=== PATIENT | male | born 1945 | race Caucasian/White ===

== ENCOUNTER → 2018-09-16 | Outpatient (CLI) | payer OTHER, MEDICARE ==
[~2018-09-16] MED LIST: ALLERGY10 M1 PO; ALPRAZOLAM 0.0.25 M1 PO; CENTRUM SILVER1 EAC2 PO; FINASTERIDE5 MG PO; FISH OIL 1,001000 M2 PO; FLOMAX0.4 MG PO; GLUCOPHAGE1000 MG PO; GLUCOSAMINE CH1 EA10 PO; GLUCOTROL10 MG PO; HYDROCODON-ACE1 EAC7 PO; IRON325 PO; JANUVIA50 MG PO; KEFLEX500 MG PO; LEVOTHYROXINE0.05 MG PO; MELATONIN1 MG PO; NABUMETONE 500500 M1 PO; OMEPRAZOLE40 MG PO; PANTOPRAZOLE SO40 MG PO; SIMVASTATIN80 MG PO; TAMSULOSIN HCL0.4 M1 PO; VITAMIN B COMP1 EACH PO; VITAMIN D31000 UNIT PO; ZANTAC 150MG T150 MG PO; ZESTRIL10 MG PO
== END ==
LOC: RAD 16:48
DX: M47.816 Spondylosis without myelopathy or radiculopathy, lumbar region (principal); M43.8X6 Other specified deforming dorsopathies, lumbar region; R10.2 Pelvic and perineal pain

== ENCOUNTER → 2018-09-20 | Outpatient (CLI) | payer OTHER, MEDICARE | LOC: MRI 10:14 | DX: S32.010A Wedge compression fracture of first lumbar vertebra, initial encounter for closed fracture (principal); S32.020A Wedge compression fracture of second lumbar vertebra, initial encounter for closed fracture; M47.816 Spondylosis without myelopathy or radiculopathy, lumbar region; M48.062 Spinal stenosis, lumbar region with neurogenic claudication; M51.26 Other intervertebral disc displacement, lumbar region; X58.XXXA Exposure to other specified factors, initial encounter; Y93.89 Activity, other specified; Y92.89 Other specified places as the place of occurrence of the external cause; Y99.8 Other external cause status ==

== ENCOUNTER → 2018-09-26 | Outpatient (CLI) | payer OTHER, MEDICARE ==
[~2018-09-26] VITALS: Ht 175.3 cm; Wt 109.8 kg
[2018-09-26 08:13] VITALS: BP 130/55
[2018-09-26 08:55] LABS: HEMATOCRIT 35.9 % (42.0-52.0); MCH 32.8 pg (26.0-34.0); MCHC 33.4 g/dL (28.0-37.0); MCV 98.1 fL (80.0-100.0); RBC 3.66 mil/uL (4.50-6.00); RDW 13.3 % (10.5-14.5); WBC 6.9 thou/uL (4.0-11.0)
[2018-09-26 09:00] LABS: CALCIUM 8.8 mg/dL (8.5-10.1); CREATININE 1.2 mg/dL (0.7-1.3)
[2018-09-26 09:04] LABS: APTT 25.9 Seconds (24.5-32.8); PROTIME 10.7 Seconds (9.3-11.4)
== END | disposition home or self-care (01) ==
LOC: SPEC 07:49
PROVIDERS: Radiology Diagnostic Radiology
DX: M80.08XA Age-related osteoporosis with current pathological fracture, vertebra(e), initial encounter for fracture (principal); M54.9 Dorsalgia, unspecified; E11.9 Type 2 diabetes mellitus without complications; E78.5 Hyperlipidemia, unspecified; E03.9 Hypothyroidism, unspecified; C83.30 Diffuse large B-cell lymphoma, unspecified site; G47.30 Sleep apnea, unspecified; Z90.49 Acquired absence of other specified parts of digestive tract; Z79.4 Long term (current) use of insulin; Z98.890 Other specified postprocedural states; Z79.899 Other long term (current) drug therapy

== ENCOUNTER → 2018-10-16 | Outpatient (CLI) | payer OTHER, MEDICARE ==
[~2018-10-16] VITALS: Ht 175.3 cm; Wt 108.9 kg
[~2018-10-16] MED LIST changes: +ALLOPURINOL 10100 M1 PO; +CARAFATE 1 GM TA1 G1 PO; +CRESTOR10 MG PO; +LANTUS SUBQ; -LEVOTHYROXINE0.05 MG PO; +NORCO 5-325 TA1 EAC1 PO; +NOVOLOG100 UNIT/1 SUBQ; +PIOGLITAZONE15 MG; +SYNTHROID125 MC1 PO; +XANAX 0.25 MG0.25 MG PO
[2018-10-16 09:27] VITALS: BP 125/78
--- NOTE | 2018-10-16 09:49 | NUR ---
Pain Clinic Assessment: 1. History of Osteoarthritis: B/L SHOULDERS B/L HIPS SPINE History of Rheumatoid Arthritis: NONE 2. Height: 5 ft. 9 in. 175.3 cm. Weight: 240.0 lb. oz. 108.864 kg. Patient's BMI: 35.4 3. Vital Signs: BP: 125/78 Pulse: 61 Resp: 16 Temp: 02 Sat: 97 ECG Mon: 4. Pain Intensity: 5 5. Fall Risk: Dizziness: N Needs help standing or walking: N Fallen in the last 3 months: Y Fall risk comments: 6. Patient on Blood Thinner: None 7. History of Hypertension: N 8. Opioid Therapy greater than 6 weeks: Opiate Contract Signed: 9. Risk Assessment Tool Provided: LOW 10. Functional Assessment Tool: 11. Recreational Drug Use: Never Drug Type: Tobacco Use: Never Smoker Tobacco Type: Amount or Packs/day: How Many Years: Alcohol Use: No Frequency: Quant:
--- NOTE | 2018-10-22 07:48 | HPC ---
[facility] [place] [address] PAIN MANAGEMENT CONSULTATION Name: AKASH JIANG [id number] Admission: 10/16/18 ������������������ Attend Phys: Geovany Frost DO Discharge: ������������������ Date of : 43 Report #: [id number] THIS REPORT FOR: //name// CC: Geovany Oviedo MD DATE OF SERVICE: 10/16/2018 REFERRING PHYSICIAN: Melvin Oviedo M.D. CHIEF COMPLAINT: Mid back pain. HISTORY OF PRESENT ILLNESS: As you know, the patient is a very pleasant 73-year-old male who sustained a fall from a ladder 09/11/2018. He sustained L1 compression fracture of the superior endplate and then L2 compression fracture of the superior endplate. The patient underwent a vertebral augmentation without improvement in his symptoms. Review of the imaging shows a kyphoplasty at L1 with successful stabilization of the superior endplate. Review of those films also showed an unsuccessful osteoplasty change at the L2 without stabilization of the superior endplate. The patient continues to experience pain for which he returned to his PCP and the primary care physician to determine his symptoms were related to these changes at the L4-L5 level and he was subsequently referred to our clinic. The patient indicates pain is only present when standing or sitting, completely resolved with lying down. He describes the pain as throbbing. He places pain directly over the L2 level. There is no involvement of any of the lower back or lower extremities in any type of radicular fashion. He indicates pain level of 5/10, reports daily average of 4/10, worst the pain has been is 10/10. The patient states he is standing, bending at the waist, sitting tends to exacerbate symptoms; lying down completely resolves symptoms as does sleeping in his recliner. He has been referred to our service to discuss options for treatment for suspected L4-L5 pathology. PAST MEDICAL HISTORY: 1. Diabetes mellitus type 2. 2. Chronic anemia. 3. Thyroid disease. 4. Peptic ulcer disease. 5. Degenerative joint disease. 6. Osteoarthritis. 7. Cancer. PAST SURGICAL HISTORY: 1. Herniorrhaphy. [facility] [address] [place] [address] PAIN MANAGEMENT CONSULTATION Name: AKASH JIANG Room #: REG [facility]#: [id number] Admission: 10/16/18 ������������������ Attend Phys: Geovany Frost DO Discharge: ������������������ Date of : 43 Report #: [id number] 2. Cholecystectomy. 3. Bilateral eye surgery. 4. Lumbar spine surgery. SOCIAL HISTORY: The patient denies tobacco, alcohol or IV or illicit drug use. 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 He retired about 9 years ago. He is not receiving workmen's compensation nor is he trying to obtain disability benefits. He is not in litigation in regards to pain and he is unaccompanied today. REVIEW OF SYSTEMS: Positive for fatigue and weakness, wearing corrective eyewear, hearing loss with tinnitus, shortness of breath with walking or lying flat, frequent diarrhea interspersed with constipation, peptic ulcer disease, frequent urination, nocturia, incontinence, dribbling to urine, change of force or stream urination, weakness, insomnia, thyroid disease, diabetes mellitus type 2, slow to heal after cuts and anemia. All other review of systems negative per 12-point review of systems other than those listed in the history of present illness. PAIN SCORE: Pain impact score 36/70 indicating moderate interference of daily activities secondary to pain. ALLERGIES: No known drug allergies. CURRENT MEDICATIONS: Insulin 40 units subcutaneously q.a.m. 35 units per each meal, hydrocodone 5/325 one tab every 4 hours p.r.n. for pain, sucralfate 1 gram per day, alprazolam 0.25 mg once a day, allopurinol 100 mg once a day, pioglitazone 15 mg once a day, lovastatin 10 mg per day, tamsulosin 0.4 mg once a day, nabumetone 500 mg twice a day, pantoprazole 40 mg per day, finasteride 5 mg per day, lisinopril 10 mg per day, levothyroxine 125 mcg per day and metformin 1000 mg twice a day. IMAGING DATA: MRI of the lumbar spine obtained 09/20/2018 shows a superior endplate compression fracture of L1 and superior endplate compression fracture of L2. There is no significant retropulsion at either level. Anatomic alignment is noted. T12-L1 is unremarkable. L1-L2 disk space shows some bulging effacement of the ventral thecal sac. No central canal stenosis. L3-L4 disk desiccation, mild changes of the central canal, reducing canal to 10 mm, bilateral moderate neural foraminal stenosis. L3-L4, mild effacement of the ventral thecal sac due to a disk desiccation and bulging, central canal is measuring 12.5 mm, bilateral neural foraminal stenosis is noted, mildly. L4-L5 disk desiccation, circumferential disk bulge, effacement of the ventral thecal sac, bilateral recess narrowing with possible effacement of the underside of the exiting L4 nerve roots. L5-S1 unremarkable. PQRS: The patient has known osteoarthritic changes of the bilateral shoulders, [address] [address] PAIN MANAGEMENT CONSULTATION Name: AKASH JIANG Room #: [facility]#: [id number] Admission: 10/16/18 ������������������ Attend Phys: Geovany Frost DO Discharge: ������������������ Date of : 43 Report #: [id number] bilateral hips and the lumbar spine. No rheumatoid arthritis. He is placing pain intensity of 5/10, is not a fall risk but did have this fall off the ladder during the accident on 09/11/2018; otherwise, no falls. He is not on blood thinners, not treated for hypertension. He is on opioids but not for greater than 6 weeks. He has a low opioid addiction potential. Pain impact score 36/70, moderate interference of daily activities secondary to pain. PHYSICAL EXAMINATION: VITAL SIGNS: Blood pressure 125/78, pulse of 61 and respiratory rate 16 and unlabored. The patient is 97% on room air. Height 5 feet 9 inches tall, weight 240 pounds and BMI calculated 35.4. GENERAL: Well-developed, well-nourished and exogenously obese 73-year-old male. He appears stated age, pain is rated today around 5/10. HEENT: Normocephalic and atraumatic. Pupils equal, round, reactive to light. Extraocular muscles are intact. Sclerae nonicteric without injection. NEUROLOGICAL: Cranial nerves 2 through 12 grossly intact. Speech fluent. The patient deemed a good historian. LUNGS: Clear. No wheeze, rhonchi or rales. CARDIOVASCULAR: Regular. No appreciable gallop and no rub. ABDOMEN: Soft and obese. Normoactive bowel sounds. EXTREMITIES: Show no clubbing, no cyanosis and no edema. MUSCULOSKELETAL: There is palpatory tenderness directly over the L2 level. There is no ecchymosis or changes in skin color, texture overlying the area. Seated straight leg raising negative. Supine straight leg raising negative. Lew's test is negative. Modified Gaenslen's positive for axial low back pain. Ankle clonus negative. Babinski is negative. He is intact to light touch from L1 through S2 dermatomes. Deep tendon reflexes are symmetrical at patella and Achilles, diminished but symmetrical. Gait appears normal. Pain is elicited with forward flexion of the lumbar spine, extension of lumbar spine and improves pain nearly a 0/10 level. ASSESSMENT: 1. Traumatic L1 compression fracture status post successful osteoplastic procedure. 2. L2 compression fracture with unsuccessful osteoplasty procedure. 3. Axial back pain due to L2 compression fracture with unsuccessful osteoplasty procedure. 4. Degenerative changes of the lumbar spine. PLAN: 1. Based on today's physical exam and history the patient has provided, the description the patient uses in regards to pain as well as location of symptoms and the factors that exacerbate his pain and improve his symptoms, as well as the review of imaging that shows a successful L1 compression fracture repair with osteoplastic procedure and stabilization of the superior endplate along with an unsuccessful L2 vertebral augmentation without and stabilization of the [address] [address] PAIN MANAGEMENT CONSULTATION Name: AKASH JIANG Room #: REG [facility]#: [id number] Admission: 10/16/18 ������������������ Attend Phys: Geovany Frost DO Discharge: ������������������ Date of : 43 Report #: [id number] superior endplate likely source of the patient's pain remains the fracture at L2. The patient himself reports that his pain has not improved since the osteoplastic procedure and remains in the exact same distribution and at the top of the same intensity would indicate that the findings of the imaging are consistent with his physical presentation. He has no component of neuropathy. There is no clinical discogenic pain on examination. No findings in the lumbar spine causing any significant impingement of the central canal or neural foramen and the patient is having no paresthesias radiating and into the buttock area or down the legs. He has axial back pain, specifically over the L2 level. This would indicate a lack of efficacy with this L2 vertebral augmentation. The patient and I discussed at length the treatment options available for the residual pain he is experiencing. It is not unusual for the patients to have pain lasting up to 6-8 weeks post-fracture even with augmentation being successful. We discussed the following treatment today. 2. Given the findings on the x-ray imaging postprocedurally from the osteoplastic procedure, we would recommend the patient use a TLSO brace. He has near complete resolution of pain with extension of the lumbar spine into a more anatomic position. This would indicate that he is continuing to have a fracture related pain at the L2 level as placing a stress upon the superior endplate with forward flexion of the lumbar spine or even sitting a "slumped position" would be exacerbating symptoms. This would indicate that the compressive forces at that level continue to be problematic. With the TLSO bracing in the form of a Jewitt brace, we can offload the weight from the anterior surface of the vertebral body placing the weight on the posterior elements, which are still stable and resolve his symptoms. He will need to wear this TLSO brace while seated standing or doing any activities for at least 6-8 weeks for a full and complete recovery. He can remove the TLSO brace during lying down. 3. The patient and I did discuss the possibility of medication management to address ongoing pain. He is going to continue to see his PCP for any pain medications. We recommend continuing the anti-inflammatory medication if he can continue to tolerate this medication, though has been shown in some of the orthopedic literature that it may slow the healing of bony structures and this has not been proven in a long-term study data and I believe he would be safe to continue this therapy. We recommend this along with his low dose opioids as necessary, we will recommend half dose of his hydrocodone on an as needed basis as I do not feel he needs the full dosing nor does the patient. We will defer to the primary team to continue this therapy. 4. In regards to injection therapies, they are not indicated in this case. Steroids have been known to cause decreased osteoblastic activity and increasing of osteoclastic activity, which will reduce the potential for healing in the area and is not recommended in this patient's case. There is no radicular component to the symptoms the patient is experiencing and no significant central canal neural foraminal stenosis to be concerned of. 5. We wish to thank Dr. Oviedo for the referral of the patient to our clinic. It is unfortunate that his osteoplastic procedure was not completely successful. I believe he did receive excellent improvement in his L1 [address] [address] PAIN MANAGEMENT CONSULTATION Name: AKASH JIANG Room #: REG [facility]#: [id number] Admission: 10/16/18 ������������������ Attend Phys: Geovany Frost DO Discharge: ������������������ Date of : 44 Report #: [id number] compression fracture pain but unsuccessful at the L2 level given the lack of superior endplate distribution of osteoplastic material leaving him with continued axial back pain secondary to the unsuccessful treatment of the L2 level. Again, we wish to thank Dr. Oviedo for the referral of the patient to our clinic. We will be returning his care to your capable services advising you to have the patient removed the TLSO brace in approximately 6-8 weeks after you have done serial x-rays to confirm fracture healing. Again, we wish to thank the opportunity to see the patient in consultation. ��������������������������������������������� <ELECTRONICALLY SIGNED> ���������������������������������������� By: Geovany Frost DO ��������������������������������������������� 10/22/18 0748 [id number] Geovany Frost DO /nt
== END ==
LOC: PAIN 06:55
DX: S32.010D Wedge compression fracture of first lumbar vertebra, subsequent encounter for fracture with routine healing (principal); S32.020D Wedge compression fracture of second lumbar vertebra, subsequent encounter for fracture with routine healing; M47.816 Spondylosis without myelopathy or radiculopathy, lumbar region; W11.XXXD Fall on and from ladder, subsequent encounter

== ENCOUNTER → 2018-10-30 | Outpatient (CLI) | payer OTHER, MEDICARE ==
[~2018-10-30] VITALS: Ht 175.3 cm; Wt 109.3 kg
[2018-10-30 09:18] VITALS: BP 119/54
--- NOTE | 2018-10-30 09:23 | NUR ---
Pain Clinic Assessment: 1. History of Osteoarthritis: B/L SHOULDERS B/L HIPS SPINE History of Rheumatoid Arthritis: NONE 2. Height: 5 ft. 9 in. 175.3 cm. Weight: 241.0 lb. oz. 109.317 kg. Patient's BMI: 35.6 3. Vital Signs: BP: 119/54 Pulse: 72 Resp: 14 Temp: 02 Sat: 97 ECG Mon: 4. Pain Intensity: 2-8 5. Fall Risk: Dizziness: N Needs help standing or walking: N Fallen in the last 3 months: N Fall risk comments: 6. Patient on Blood Thinner: None 7. History of Hypertension: N 8. Opioid Therapy greater than 6 weeks: Opiate Contract Signed: 9. Risk Assessment Tool Provided: LOW 10. Functional Assessment Tool: 11. Recreational Drug Use: Never Drug Type: Tobacco Use: Never Smoker Tobacco Type: Amount or Packs/day: How Many Years: Alcohol Use: No Frequency: Quant:
--- NOTE | 2018-11-12 09:15 | HPC ---
[facility] [place] [address] PAIN MANAGEMENT CONSULTATION Name: AKASH JIANG Room #: REG [facility].#: [id number] Admission: 10/30/18 ������������������ Attend Phys: Geovany Frost DO Discharge: ������������������ Date of : 43 Report #: [id number] THIS REPORT FOR: //name// CC: Geovany Oviedo MD DATE OF SERVICE: 10/30/2018 CHIEF COMPLAINT: Mid back pain status post suboptimal fracture repair. HISTORY OF PRESENT ILLNESS: As you know, the patient is a very pleasant 73-year-old male who returns today in followup visit with continued mid back pain. We saw the patient in consultation per the request of Dr. Oviedo after he underwent failed kyphoplasty procedure to address two fractures after a fall from the ladder. He returns today in followup visit with the TLSO brace in place and appears to be doing fairly well. He is placing pain anywhere from 2-8/10 depending on activity. He admits that he has not been consistent with the use of the bracing system and notes pain with certain movements. He returns today to discuss options for treatment. Unfortunately, the repair at the L2 level did not address the actual fracture position and this left the patient with continued pain and discomfort. The TLSO bracing was applied to help stabilize the bony structure so that no further compression will occur. I discussed with the patient in our first visit that pain will be present for up to 6-8 weeks as he continues to heal. Unfortunately, there is no way to go back and redo what has been done. He returns today to discuss adjustments in medication therapy in hopes of improving pain further, as he has not seen prolonged benefit with just the TLSO bracing and [id number] medications. ALLERGIES: No known drug allergies. CURRENT MEDICATIONS: Insulin, hydrocodone, sucralfate, alprazolam, allopurinol, pioglitazone, lovastatin, Metamucil, nabumetone, pantoprazole, lisinopril, levothyroxine and metformin. SOCIAL HISTORY: The patient denies tobacco, alcohol, IV or illicit drug use. 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 He retired about nine years ago. He is unaccompanied today. IMAGING: No new imaging available. PQRS: The patient has known arthritic changes of bilateral shoulders, bilateral hips and the lumbar spine. No rheumatoid arthritis. He is placing pain intensity today around 2-8/10 depending on activity. He is not typically a fall risk, but did have a fall off the ladder. He is not on blood thinners. He is treated for hypertension. He is not on chronic opioids. He has a low opiate [facility] [address] [place] [address] PAIN MANAGEMENT CONSULTATION Name: JIANGAKASH Room #: REG [facility]#: [id number] Admission: 10/30/18 ������������������ Attend Phys: Geovany Frost DO Discharge: ������������������ Date of : 43 Report #: [id number] addiction potential. Pain impact score is 36/70, moderate interference of daily activities secondary to pain. PHYSICAL EXAMINATION: VITAL SIGNS: Blood pressure 119/54, pulse 72, respiratory rate 14 and unlabored. The patient is 97% on room air. Height 5 feet 9 inches tall, weight 241 pounds, BMI calculated 35.6. GENERAL: Well-developed, well-nourished, well-hydrated, exogenously obese 73-year-old male appearing stated age, pain is rated anywhere from 2-8/10. HEENT: Normocephalic, atraumatic. Pupils equal, round, reactive to light. EXTREMITIES: Show no clubbing, no cyanosis, and no edema. MUSCULOSKELETAL: Lower extremity strength equal and symmetrical 5/5. Slight deconditioning noted bilaterally. Seated straight leg raising negative. Supine straight leg raising negative. Lew test negative. Modified Gaenslen's is positive for axial low back pain. Babinski is negative. Gait appears normal. Stance is improved with the TLSO brace. ASSESSMENT: 1. Traumatic L1 compression fracture status post vertebral augmentation. 2. L2 compression fracture with unsuccessful vertebral augmentation. 3. Axial back pain due to L2 compression fracture with unsuccessful osteoplasty procedure. 4. Degeneration of lumbar spine. PLAN: 1. The patient returns today in followup visit. Wearing of the TLSO brace appears to be slightly loose on the patient. We have adjusted the device to better improve analgesia and stabilization of the lumbar spine. Unfortunately, I cannot speed up the fracture healing process, it will take time. I have advised the patient that he will need to reduce his activities to some degree to accommodate the fact that the fracture remains relatively active and that adjustments in the device may improve the pain he has been experiencing by offloading the anterior weight of the vertebral body to the posterior elements, which remained stable. He will need to remain in the brace until which time, his own healing takes over. Unfortunately, the augmentation procedure performed did not address the actual fracture position and left the patient with suboptimal results. The patient will need to remain in the TLSO brace for at least 6-8 weeks. 2. We will send the patient for x-ray of the thoracolumbar spine. I do wish to further evaluate this fracture area to determine if further compression has occurred. The patient can contact our clinic tomorrow in regards to the findings. If we note any significant changes, we will contact the patient directly. He does not have any radicular component to his symptoms at this time, so I am not concerned of retropulsion at this point, though we will be watchful for this issue. 3. The patient was provided a prescription of hydrocodone 5/325 one tab p.o. [address] [address] PAIN MANAGEMENT CONSULTATION Name: AKASH [facility]IANG [facility] [id number] Admission: 10/30/18 ������������������ Attend Phys: Geovany Frost DO Discharge: ������������������ Date of : 43 Report #: [id number] q.8h. p.r.n. for pain. I have given the patient #90 tablets, releasing today. The patient was advised to take the medication only as directed. He is not to take the medication prophylactically. He is to watch for side effects of sleepiness, disorientation, confusion, mental slowing and constipation. If he notes any side effects, contact either ourselves or his PCP. 4. We will see the patient back in followup visit in approximately one month. At that time, we will redo x-ray imaging to confirm if healing has begun and if so, begin to remove the patient from the TLSO brace based on activities. ��������������������������������������������� <ELECTRONICALLY SIGNED> ���������������������������������������� By: Geovany Frost DO ��������������������������������������������� 11/12/18 0915 [id number] Geovany Frost DO /marcial
== END ==
LOC: PAIN 06:49
DX: S32.019A Unspecified fracture of first lumbar vertebra, initial encounter for closed fracture (principal); S32.029A Unspecified fracture of second lumbar vertebra, initial encounter for closed fracture; M51.36 Other intervertebral disc degeneration, lumbar region; Z79.4 Long term (current) use of insulin; Z79.899 Other long term (current) drug therapy; X58.XXXA Exposure to other specified factors, initial encounter; Y93.89 Activity, other specified; Y92.89 Other specified places as the place of occurrence of the external cause; Y99.8 Other external cause status

== ENCOUNTER → 2018-11-12 | Outpatient (CLI) | payer OTHER | LOC: RAD 12:32 | DX: M47.815 Spondylosis without myelopathy or radiculopathy, thoracolumbar region (principal); M43.8X6 Other specified deforming dorsopathies, lumbar region ==

== ENCOUNTER → 2018-11-13 | Outpatient (CLI) | payer OTHER ==
[~2018-11-13] VITALS: Ht 175.3 cm; Wt 108.8 kg
[2018-11-13 09:00] VITALS: BP 112/57
--- NOTE | 2018-11-13 09:08 | NUR ---
Pain Clinic Assessment: 1. History of Osteoarthritis: B/L SHOULDERS B/L HIPS SPINE History of Rheumatoid Arthritis: NONE 2. Height: 5 ft. 9 in. 175.3 cm. Weight: 239.8 lb. oz. 108.773 kg. Patient's BMI: 35.4 3. Vital Signs: BP: 112/57 Pulse: 70 Resp: 18 Temp: 02 Sat: 100 ECG Mon: 4. Pain Intensity: 2 TODAY 5. Fall Risk: Dizziness: N Needs help standing or walking: N Fallen in the last 3 months: N Fall risk comments: 6. Patient on Blood Thinner: None 7. History of Hypertension: N 8. Opioid Therapy greater than 6 weeks: Opiate Contract Signed: 9. Risk Assessment Tool Provided: LOW 10. Functional Assessment Tool: 11. Recreational Drug Use: Never Drug Type: Tobacco Use: Never Smoker Tobacco Type: Amount or Packs/day: How Many Years: Alcohol Use: No Frequency: Quant:
--- NOTE | 2018-11-19 15:47 | HPC ---
[facility] [place] [address] PAIN MANAGEMENT CONSULTATION Name: AKASH JIANG Room #: REG [facility]#: [id number] Admission: 11/13/18 Attend Phys: Geovany Frost DO Discharge: Date of : 43 Report #: [id number] THIS REPORT FOR: //name// CC: Geovany Oviedo MD DATE OF SERVICE: 11/13/2018 CHIEF COMPLAINT: Mid back pain. HISTORY OF PRESENT ILLNESS: As you know, the patient is a very pleasant 73-year-old male who sustained a fall from a ladder on 09/11/2018. He sustained an L1 compression fracture of the superior endplate and then L2 compression fracture of the superior endplate. He underwent vertebral augmentation, which successfully stabilized the L1 fracture, but unfortunately did not stabilize the L2 fracture and patient continued to experience pain. We saw the patient in consultation. We reviewed the kyphoplasty procedure. Imaging which did note positioning of the glue within the L2 fracture affecting the wrong endplate. Unfortunately, this precludes us from providing a repeat procedure to try to stabilize the endplate that was fractured at the L2 level. We have now placed the patient in a TLSO brace. He has been in the bracing system for approximately 4 weeks. He returns today to review the serial x-ray to determine if ultimately he is healing successfully. We placed the patient in a TLSO brace to decrease the compressive forces on the anterior surface of the vertebral body at L2 placing the weight upon the posterior elements, which are unfractured and much more stable. From a pain standpoint, he has begun to improve. He is now indicating he has been able to go about most of his activities of daily living without pain. He has not needed much in the way of pain medications. His pain today 05/19. He returns to discuss the findings of this new x-ray he received today per our request and discussed treatment from this point forward. He denies any new injury, trauma or any changes in medical history since our last visit. ALLERGIES: No known drug allergies. CURRENT MEDICATIONS: See extensive list in chart. SOCIAL HISTORY: The patient denies tobacco, alcohol, IV or illicit drug use. 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 He is unaccompanied today. IMAGING: X-ray of the lumbar spine obtained 11/12/2018 shows L1-L2 vertebral compression deformities demonstrated. There are no other vertebral deformities identified. Degenerative changes throughout the lumbar spine, which are typical age-related findings. Overall alignment is unchanged from prior study. There [address] [address] PAIN MANAGEMENT CONSULTATION Name: AKASH JIANG Gualberto [facility] [id number] Admission: 11/13/18 Attend Phys: Geovany Frost DO Discharge: Date of : 43 Report #: [id number] does appear to be some corticalization of both the L1 and L2 level at the fracture sites. PQRS: The patient has no known osteoarthritic changes of the bilateral shoulders, bilateral hips and lumbar spine. No rheumatoid arthritis. He is placing pain today at 2/10. He is not a fall risk, but has had a fall from the ladder within 3 months. He is on blood thinners. He has not reported being treated for hypertension. He is on opioids, but not for an extended period of time. He has a low opiate addiction potential. He is placing pain impact score today, no greater than 36/70, moderate interference of daily activities secondary to pain. PHYSICAL EXAMINATION: VITAL SIGNS: Blood pressure 112/57, pulse is 70, respiratory rate 18 and unlabored. The patient is 100% on room air. Height 5 feet 9 inches tall, weight 239.8 pounds, and BMI calculated 35.4. GENERAL: Well-developed, well-nourished, well-hydrated exogenously obese 73-year-old male, appears stated age, placing current pain score 2/10. HEENT: Normocephalic, atraumatic. Pupils equal, round, reactive to light. Extraocular muscles are intact. Sclerae nonicteric without injection. NEUROLOGIC: Cranial nerves 2-12 grossly intact. Speech fluent. EXTREMITIES: Show no clubbing, no cyanosis, no edema. MUSCULOSKELETAL: The patient remains in a TLSO brace. The bracing system appears well-fitted. He is tolerating the brace well. There is some palpatory tenderness over the paraspinal musculature of lower lumbar spine. No spinous process tenderness. There is no ecchymosis or changes in skin color, texture overlying fracture site. ASSESSMENT: 1. Traumatic L1 compression fracture. 2. Traumatic L2 compression fracture with unsuccessful osteoplastic procedure. 3. Chronic axial back pain. 4. Degeneration of lumbar spine. PLAN: 1. The patient has returned today in followup visit where we have reviewed the x-ray requested to further evaluate the L1-L2 vertebral bodies and the healing of the fracture. It does appear the patient is starting to see some corticalization of the bony structure over the fracture site. I am pleased to see that there has been no change in the compression deformities from the time of his last x-ray and today's x-ray. This indicates that offloading the weight has been successful with the TLSO bracing system. At this point, I do not feel that he has completed his corticalization of these two vertebral bodies and recommend a continued 2-week TLSO bracing. At the end of that 2 weeks if corticalization continues and there is no further compression, then I would recommend the patient to come out of the TLSO bracing on a periodic basis. [facility] [address] [place] [address] PAIN MANAGEMENT CONSULTATION Name: JIANGAKASH Room #: REG [facility]#: [id number] Admission: 11/13/18 Attend Phys: Geovany Frost DO Discharge: Date of : 43 Report #: [id number] Healing process typically takes somewhere between 6-8 weeks, but this is based on individual patient healing. We need to monitor this carefully so that we do not have further compression. The patient is very excited about his improvement. His pain has improved significantly over the past couple of days. He does feel he is healing well. 2. No medication changes made at today's visit. The patient will continue current medical therapy as previously prescribed. 3. A prescription for AP and lateral x-ray imaging of the lumbar spine was provided today to undergo on imaging 11/27/2018. At that time, patient can contact our clinic or he can make a followup visit with us to review the findings. If corticalization continues and healing process appears to be nearly complete, I would recommend he come out of the TLSO brace on a p.r.n. basis. If he is continuing to do well, he can then come out of the brace entirely. This will be dependent on the x-ray imaging. 4. We will keep you apprised the patient's response to treatment. I am pleased he is doing well and will keep you apprised of his next x-ray imaging and plan for treatment. <ELECTRONICALLY SIGNED> By: Geovany Frost DO 11/19/18 [id number] Geovany Frost DO /nt
== END ==
LOC: PAIN 06:47
DX: M48.53XA Collapsed vertebra, not elsewhere classified, cervicothoracic region, initial encounter for fracture (principal); M51.36 Other intervertebral disc degeneration, lumbar region

== ENCOUNTER → 2018-11-27 | Outpatient (CLI) | payer OTHER | LOC: RAD 09:06 | DX: M51.36 Other intervertebral disc degeneration, lumbar region (principal) ==

== ENCOUNTER → 2019-01-20 | Outpatient (CLI) | payer OTHER | LOC: NUC 09:28 | DX: S63.592A Other specified sprain of left wrist, initial encounter (principal); M65.4 Radial styloid tenosynovitis [de Quervain]; M81.0 Age-related osteoporosis without current pathological fracture; W19.XXXA Unspecified fall, initial encounter; Y93.89 Activity, other specified; Y92.89 Other specified places as the place of occurrence of the external cause; Y99.8 Other external cause status ==

== ENCOUNTER → 2020-02-27 | Outpatient (CLI) | payer OTHER | LOC: MRI 12:55 | PROVIDERS: ATTEND Neuromusculoskeletal Medicine & OMM | DX: M71.21 Synovial cyst of popliteal space [Baker], right knee (principal); M17.11 Unilateral primary osteoarthritis, right knee ==

== ENCOUNTER → 2020-10-06 | Outpatient (CLI) | payer OTHER | LOC: ULTRA 11:32 | PROVIDERS: ATTEND Podiatrist Foot & Ankle Surgery | DX: M79.605 Pain in left leg (principal); M79.604 Pain in right leg; M79.89 Other specified soft tissue disorders ==

== ENCOUNTER → 2020-10-22 | Outpatient (CLI) | payer OTHER | LOC: SJCVC 13:02 | PROVIDERS: ATTEND Internal Medicine Cardiovascular Disease | DX: R94.31 Abnormal electrocardiogram [ECG] [EKG] (principal); I44.1 Atrioventricular block, second degree; I45.10 Unspecified right bundle-branch block; R06.09 Other forms of dyspnea; E78.00 Pure hypercholesterolemia, unspecified; R60.9 Edema, unspecified; E11.8 Type 2 diabetes mellitus with unspecified complications; K21.9 Gastro-esophageal reflux disease without esophagitis; E07.89 Other specified disorders of thyroid; E78.5 Hyperlipidemia, unspecified; G47.33 Obstructive sleep apnea (adult) (pediatric); E66.01 Morbid (severe) obesity due to excess calories; F32.9 Major depressive disorder, single episode, unspecified; Z79.4 Long term (current) use of insulin; Z79.899 Other long term (current) drug therapy; Z72.89 Other problems related to lifestyle; Z99.89 Dependence on other enabling machines and devices; Z68.35 Body mass index [BMI] 35.0-35.9, adult ==

== ENCOUNTER → 2020-11-04 | Outpatient (CLI) | payer OTHER | LOC: HYPER 10:30 | PROVIDERS: ATTEND Emergency Medicine Emergency Medical Services | DX: I89.0 Lymphedema, not elsewhere classified (principal); E11.9 Type 2 diabetes mellitus without complications; K21.9 Gastro-esophageal reflux disease without esophagitis; M19.90 Unspecified osteoarthritis, unspecified site; F41.9 Anxiety disorder, unspecified; Z79.4 Long term (current) use of insulin ==

== ENCOUNTER → 2020-11-17 | Outpatient (CLI) | payer OTHER | LOC: SJCVCIMAG 06:51 | PROVIDERS: ATTEND Internal Medicine Cardiovascular Disease | DX: I07.1 Rheumatic tricuspid insufficiency (principal); I45.10 Unspecified right bundle-branch block; I49.3 Ventricular premature depolarization; I11.9 Hypertensive heart disease without heart failure; I77.89 Other specified disorders of arteries and arterioles; R07.89 Other chest pain; R06.00 Dyspnea, unspecified; E78.00 Pure hypercholesterolemia, unspecified; R60.9 Edema, unspecified; E11.9 Type 2 diabetes mellitus without complications; K21.9 Gastro-esophageal reflux disease without esophagitis; E78.5 Hyperlipidemia, unspecified; G47.30 Sleep apnea, unspecified; M19.90 Unspecified osteoarthritis, unspecified site; Z90.49 Acquired absence of other specified parts of digestive tract; Z79.4 Long term (current) use of insulin; Z79.899 Other long term (current) drug therapy; Z82.49 Family history of ischemic heart disease and other diseases of the circulatory system ==

== ENCOUNTER → 2020-11-22 | Outpatient (CLI) | payer OTHER | LOC: HYPER 08:54 | PROVIDERS: ATTEND Emergency Medicine | DX: I89.0 Lymphedema, not elsewhere classified (principal); E11.9 Type 2 diabetes mellitus without complications; R60.1 Generalized edema; G89.29 Other chronic pain; M19.90 Unspecified osteoarthritis, unspecified site; F41.9 Anxiety disorder, unspecified; Z79.4 Long term (current) use of insulin; Z98.890 Other specified postprocedural states; Z79.899 Other long term (current) drug therapy ==

== ENCOUNTER → 2020-12-06 | Outpatient (CLI) | payer OTHER | LOC: HYPER 08:25 | PROVIDERS: ATTEND Emergency Medicine | DX: I89.0 Lymphedema, not elsewhere classified (principal); E11.9 Type 2 diabetes mellitus without complications; R60.1 Generalized edema; G89.29 Other chronic pain; K21.9 Gastro-esophageal reflux disease without esophagitis; M19.90 Unspecified osteoarthritis, unspecified site; F41.9 Anxiety disorder, unspecified; Z79.4 Long term (current) use of insulin ==

== ENCOUNTER → 2020-12-20 | Outpatient (CLI) | payer OTHER | LOC: CAT 07:44 | PROVIDERS: ATTEND Internal Medicine Cardiovascular Disease | DX: Z13.6 Encounter for screening for cardiovascular disorders (principal); E78.00 Pure hypercholesterolemia, unspecified; I25.10 Atherosclerotic heart disease of native coronary artery without angina pectoris ==

== ENCOUNTER → 2020-12-27 | Outpatient (CLI) | payer OTHER | LOC: HYPER 09:24 | PROVIDERS: ATTEND Emergency Medicine | DX: I89.0 Lymphedema, not elsewhere classified (principal); E11.9 Type 2 diabetes mellitus without complications; R60.1 Generalized edema; G89.29 Other chronic pain; K21.9 Gastro-esophageal reflux disease without esophagitis; M19.90 Unspecified osteoarthritis, unspecified site; F41.9 Anxiety disorder, unspecified; Z79.4 Long term (current) use of insulin ==

== ENCOUNTER → 2021-01-31 | Outpatient (CLI) | payer OTHER | LOC: HYPER 11:57 | PROVIDERS: ATTEND Emergency Medicine | DX: I89.0 Lymphedema, not elsewhere classified (principal); E11.9 Type 2 diabetes mellitus without complications; R60.1 Generalized edema; G89.29 Other chronic pain; K21.9 Gastro-esophageal reflux disease without esophagitis; M19.90 Unspecified osteoarthritis, unspecified site; F41.9 Anxiety disorder, unspecified; Z79.4 Long term (current) use of insulin ==

== ENCOUNTER → 2021-03-07 | Outpatient (CLI) | payer OTHER | LOC: HYPER 08:59 | PROVIDERS: ATTEND Emergency Medicine Emergency Medical Services | DX: I89.0 Lymphedema, not elsewhere classified (principal); E11.9 Type 2 diabetes mellitus without complications; R60.1 Generalized edema; G89.29 Other chronic pain; M19.90 Unspecified osteoarthritis, unspecified site; F41.9 Anxiety disorder, unspecified; Z79.4 Long term (current) use of insulin; Z79.899 Other long term (current) drug therapy; Z98.890 Other specified postprocedural states ==

== ENCOUNTER → 2021-04-21 | Outpatient (CLI) | payer OTHER | LOC: HYPER 08:58 | PROVIDERS: ATTEND Emergency Medicine | DX: I89.0 Lymphedema, not elsewhere classified (principal); E11.9 Type 2 diabetes mellitus without complications; R60.1 Generalized edema; G89.29 Other chronic pain; K21.9 Gastro-esophageal reflux disease without esophagitis; M19.90 Unspecified osteoarthritis, unspecified site; F41.9 Anxiety disorder, unspecified; Z79.4 Long term (current) use of insulin ==

== ENCOUNTER → 2021-05-31 | Outpatient (CLI) | payer OTHER | LOC: SJCVC 10:41 | PROVIDERS: ATTEND Internal Medicine Cardiovascular Disease | DX: R94.31 Abnormal electrocardiogram [ECG] [EKG] (principal); I45.19 Other right bundle-branch block; R93.1 Abnormal findings on diagnostic imaging of heart and coronary circulation; R06.00 Dyspnea, unspecified; E78.00 Pure hypercholesterolemia, unspecified; R60.9 Edema, unspecified; E11.8 Type 2 diabetes mellitus with unspecified complications; E78.5 Hyperlipidemia, unspecified; K21.9 Gastro-esophageal reflux disease without esophagitis; I10 Essential (primary) hypertension; G47.33 Obstructive sleep apnea (adult) (pediatric); Z79.4 Long term (current) use of insulin; Z82.49 Family history of ischemic heart disease and other diseases of the circulatory system; Z72.89 Other problems related to lifestyle; Z79.899 Other long term (current) drug therapy ==